=== PATIENT | male | born 1970 | race Caucasian/White ===

== ENCOUNTER 2021-09-11 08:11 | Outpatient (CLI) | payer OTHER, SELFPAY ==
[2021-09-11 11:21] LABS: Chloride* 103 mmol/L (96-114); Potassium* 4.2 mmol/L (3.6-5.1); Sodium* 138 mmol/L (135-149)
[2021-09-11 11:23] LABS: Cholesterol* 219 mg/dL (90-199); Creatinine* 0.9 mg/dL (0.5-1.5); Estimated Glomerular Filt Rate 105 ml/min
[2021-09-11 11:24] LABS: Blood Urea Nitrogen* 20 mg/dL (5-24); Calcium* 9.3 mg/dL (8.4-10.6); Carbon Dioxide* 27 mmol/L (20-32); Glucose* 123 mg/dL (60-115); Triglycerides* 125 mg/dL (40-149)
[2021-09-11 11:25] LABS: HDL Cholesterol* 58 mg/dL (>=40); LDL Cholesterol Calculated 136 mg/dL (<100)
== END 2021-09-11 08:12 | disposition home or self-care (01) ==
LOC: NFLDREF 08:12
PROVIDERS: PCP Family Medicine; Visit Provider Family Medicine
DX: Z00.00 Encounter for general adult medical examination without abnormal findings (principal); E87.1 Hypo-osmolality and hyponatremia; R73.09 Other abnormal glucose; E66.3 Overweight; R03.0 Elevated blood-pressure reading, without diagnosis of hypertension
CPT/HCPCS: 80048; 80061

== ENCOUNTER 2022-10-07 08:17 | Outpatient (CLI) | payer MEDICAID, SELFPAY | END 2022-10-07 08:18 | disposition home or self-care (01) | LOC: NFLDREF 11:20 | PROVIDERS: PCP Family Medicine; Referring Provider Family Medicine; Visit Provider Family Medicine | DX: Z13.6 Encounter for screening for cardiovascular disorders (principal) | CPT/HCPCS: 80061 ==

== ENCOUNTER 2024-08-03 08:52 | Outpatient (CLI) | payer MEDICAID, SELFPAY | END 2024-08-03 08:53 | disposition home or self-care (01) | PROVIDERS: PCP Family Medicine; Visit Provider Family Medicine | DX: E78.5 Hyperlipidemia, unspecified (principal); R68.82 Decreased libido; Z12.5 Encounter for screening for malignant neoplasm of prostate | CPT/HCPCS: 80053; 80061; 84403; G0103 ==

== ENCOUNTER 2024-08-19 07:21 | Outpatient (CLI) | payer MEDICAID, SELFPAY ==
--- NOTE | 2024-08-19 08:23 | P.ANES_ITS ---
Anesthesia Charges Start Date/Time Anesthesia Start Date: 08/19/24 Anesthesia Start Time: 07:58 Stop Date/Time Anesthesia Stop Date: 08/19/24 Anesthesia Stop Time: 08:21 Coding CPT Codes CPT Codes: ANES LWR INTST SCR COLSC - 45417 ([id number]) P2 - PATIENT W/MILD SYST DISEASE, QK - COMMAND POST SUPERINTENDENT 2-4 CNCRNT ANES PROC, QX - AERIAL HURRICANE HUNTER SVC W/ MD MED DIRECTION
--- NOTE | 2024-08-19 08:23 | W.ANESCHARGE ---
Anesthesia Charges Start Date/Time Anesthesia Start Date: 08/19/24 Anesthesia Start Time: 07:58 Stop Date/Time Anesthesia Stop Date: 08/19/24 Anesthesia Stop Time: 08:21 Coding CPT Codes CPT Codes: ANES LWR INTST SCR COLSC - 39219 ([id number]) P2 - PATIENT W/MILD SYST DISEASE, QK - CLINICAL RESEARCH MANAGER 2-4 CNCRNT ANES PROC, QX - CARRY OUT CLERK SVC W/ MD MED DIRECTION
--- NOTE | 2024-08-19 08:29 | P.ANES_ITS ---
Anesthesia Charges Start Date/Time Anesthesia Start Date: 08/19/24 Anesthesia Start Time: 07:58 Stop Date/Time Anesthesia Stop Date: 08/19/24 Anesthesia Stop Time: 08:21 Coding CPT Codes CPT Codes: ANES LWR INTST SCR COLSC - [id number] ([id number]) P2 - PATIENT W/MILD SYST DISEASE, QK - CELL ATTENDANT 2-4 CNCRNT ANES PROC, QX - COBOL MAINFRAME DEVELOPER SVC W/ MD MED DIRECTION
--- NOTE | 2024-08-19 08:29 | W.ANESCHARGE ---
Anesthesia Charges Start Date/Time Anesthesia Start Date: 08/19/24 Anesthesia Start Time: 07:58 Stop Date/Time Anesthesia Stop Date: 08/19/24 Anesthesia Stop Time: 08:21 Coding CPT Codes CPT Codes: ANES LWR INTST SCR COLSC - [id number] ([id number]) P2 - PATIENT W/MILD SYST DISEASE, QK - MICROFICHE CAMERA OPERATOR 2-4 CNCRNT ANES PROC, QX - INTERNET DESIGNER SVC W/ MD MED DIRECTION
== END 2024-08-19 07:22 | disposition home or self-care (01) ==
LOC: OP CLINIC 07:22
PROVIDERS: PCP Family Medicine; Visit Provider Internal Medicine
DX: Z12.11 Encounter for screening for malignant neoplasm of colon (principal); Z86.0100 Personal history of colon polyps, unspecified; K57.30 Diverticulosis of large intestine without perforation or abscess without bleeding
CPT/HCPCS: 00812; 45378; J2704

== ENCOUNTER 2024-08-23 07:28 | Outpatient (CLI) | payer MEDICAID, SELFPAY | END 2024-08-23 07:29 | disposition home or self-care (01) | LOC: NFLDREF 08-24 14:11 | PROVIDERS: PCP Family Medicine; Referring Provider Family Medicine; Visit Provider Family Medicine | DX: E78.5 Hyperlipidemia, unspecified (principal) | CPT/HCPCS: 80061 ==

== ENCOUNTER 2024-10-20 06:13 | Day surgery (SDC) | payer MEDICAID, SELFPAY ==
[2024-10-20] VITALS (13 sets, daily range): BP systolic 112–128; BP diastolic 67–86; PULSE 60–70; RESP 12–16; TEMP 36.3–36.8; O2SAT 95–96; BMI 31.3
[2024-10-20] MEDS: LACTATED RINGERS 1000 ML 1,000 ML 100 ML IV (07:05)
[2024-10-20] MEDS: SODIUM CHLORIDE 0.9 % (FLUSH) 10 ML SYRINGE IVF (07:05)
[2024-10-20] MEDS: BUPIVACAINE 0.25% 30 ML INJECTION (07:48)
--- NOTE | 2024-10-20 09:21 | W.PODPROC_ITS ---
Date of Procedure: 10/20/24 Surgeon: Obinna Sherman DPM Co-Surgeon: Dr. Fernanda Walsh DPM Pre-op Diagnosis: Right hallux rigidus/valgus Post-op Diagnosis: Right hallux rigidus/valgus Type of Procedure: 1. 1st Metatarsophalangeal arthrodesis, right 2. Bone marrow aspiration, right calcaneus Indications: Painful Right hallux rigidus/valgus recalcitrant to conservative cares Procedure Description: PROCEDURE: The patient was identified prior to being brought into the operating room using their name and date of as identifiers. The intended surgical care plan was again reviewed in detail with the patient as well as the rationale for the surgery, the most common risks, complications, and expected recovery course. The patient was given the opportunity to ask questions which were answered to the best of my ability. The patient ultimately voiced no questions or concerns and agreed to proceed forward with the surgery as planned. The patient was brought into the operating room and placed on the operating room table in the supine position. Anesthesia then performed LMA anesthesia. A well padded and appropriately sized ankle tourniquet was applied to their operative lower extremity. The operative lower extremity was then prepped and draped from toes to ankle in the usual aseptic fashion. The surgical prep was allowed to dry completely per electric track switch maintainer specifications. Antibiotic prophylaxis was infused i n the OR prior to start of the procedure. A TIME-OUT was performed and documented. Bone Marrow Aspiration, Right? A leone-block and calcaneal field block were performed to the operative foot using 0.25% Marcaine plain. The lateral aspect of the calcaneus was penetrated with a 15 gauge needle using standard technique and bone marrow along with chips of cancellous bone within the calcaneus was aspirated in 0.5-cc increments with redirection between each increment until an appropriate volume of bone marrow aspirate was obtained for use with the operative procedure performed. The integrity of the bone marrow aspira-tion/bone graft site was verified with stress palpation. The operative limb was exsanguinated with an Esmarch and the tourniquet was inflated to 250mmHg. 1st MPJ Arthrodesis, Right A linear incision 5-cm in length was made on the dorsal-medial aspect of the first metatarsal-phalangeal joint of the operative foot and the incision deep ened through the subcutaneous layers with care taken to identify, retract, and protect all vital structures and coagulate any bleeders as necessary. The incision was then deepened to the capsule and periosteum overlying the first metatarsal-phalangeal joint where a linear capsulotomy was performed to free the dorsal, medial, and lateral aspects of the first metatarsal head and base of the proximal phalanx. The first metatarsal head, base of the proximal phalanx, and sesamoids were visualized and the joint was deemed non-salvageable. Using a combination of hand-held and power instruments, the first metatarsal head and base of the proximal phalanx were resected in [id number] fashion followed by fenestration of the remaing subchondral bone plate to expose raw cancellous bone substrate throughout the operative site. The previously created bone graft mixture was packed in the osseous defects to promote healing. The base of the proximal phalanx was aligned according to the patients anatomic and functional needs paying attention to standard guidelines for optimum position and maintained in this position with provisional k-wire fixation. The forefoot was loaded and anatomic soft-tissue and osseous reduction was appreciated with good osseous apposition noted. A compression lag screw was placed over a guide wire in standard A.O. technique across the arthrodesis site with osseous apposition maintained. Intra-operative image intensification demonstrated proper alignment, stability, osseous apposition, and screw placement. An anatomical contoured arthrodesis plate was sized and placed over the dorsal aspect of the first metatarsal head and secured with multiple screws including the use of eccentric drilling for additional compression. Locking screws where employed as needed to provide a stable construct after care was taken to verify compression across the arthrodesis site. The original screw was re-tightened following insertion of the plate and screw construct. Intra-operative image intensification demonstrated proper alignment, stability, osseous apposition, and plate and screw placement. The surgical sites were copiously irrigated with sterile saline and hemostasis obtained with electrocautery. The deep tissues were approximated with absorbable suture and the skin edges approximated without tension using non-absorbable sutures. The pneumatic ankle tourniquet was then released and immediate reperfusion was noted to digits 1-5 of the operative foot. A bulky well-padded was then applied to the operative lower extremity from the base of the toes to ankle. All sponge and instrument counts were correct at the completion of the surgery as well as prior to closure of deep tissue and skin. Patient was successfully reversed from general anesthesia. Patient tolerated anesthesia and procedure well. Upon completion, patient was transferred from the operating room to the post- anesthesia care unit without incident. Upon arrival vital signs were stable and vascular status was intact to the operative lower extremity. Anesthesia: other (General LMA) Hemostasis: ankle (87 minutes) Estimated blood loss (mL): 5 Provider Operated C-arm: mini c-arm usage accumulated dose: 0.232mGy Implants: 3.0 headless compression screw Kodi 0 degree locking plate kodi 3.5 locking (x4) and non-locking (x1) plate screws kodi Specimens: none sent Disposition: PACU
--- NOTE | 2024-10-20 09:33 | P.ANES_ITS ---
Anesthesia Charges Start Date/Time Anesthesia Start Date: 10/20/24 Anesthesia Start Time: 07:28 Stop Date/Time Anesthesia Stop Date: 10/20/24 Anesthesia Stop Time: 09:34 Coding CPT Codes CPT Codes: ANESTH LOWER LEG BONE SURG - 70324 ([id number]) P2 - PATIENT W/MILD SYST DISEASE, QK - OXYACETYLENE CUTTER 2-4 CNCRNT ANES PROC, QX - SEXUAL HEALTH PHYSICIAN SVC W/ MD MED DIRECTION
--- NOTE | 2024-10-20 09:33 | W.ANESCHARGE ---
Anesthesia Charges Start Date/Time Anesthesia Start Date: 10/20/24 Anesthesia Start Time: 07:28 Stop Date/Time Anesthesia Stop Date: 10/20/24 Anesthesia Stop Time: 09:34 Coding CPT Codes CPT Codes: ANESTH LOWER LEG BONE SURG - 97226 ([id number]) P2 - PATIENT W/MILD SYST DISEASE, QK - CHEMICAL CHECKER 2-4 CNCRNT ANES PROC, QX - TRENCHER DRIVER SVC W/ MD MED DIRECTION
--- NOTE | 2024-10-20 10:48 | P.ANES_ITS ---
Anesthesia Charges Start Date/Time Anesthesia Start Date: 10/20/24 Anesthesia Start Time: 07:28 Stop Date/Time Anesthesia Stop Date: 10/20/24 Anesthesia Stop Time: 09:34 Coding CPT Codes CPT Codes: ANESTH LOWER LEG BONE SURG - 70121 ([id number]) P2 - PATIENT W/MILD SYST DISEASE, QK - FORMAL WAITER/WAITRESS 2-4 CNCRNT ANES PROC, QX - PROFESSOR OF POLITICAL SCIENCE SVC W/ MD MED DIRECTION
--- NOTE | 2024-10-20 10:48 | W.ANESCHARGE ---
Anesthesia Charges Start Date/Time Anesthesia Start Date: 10/20/24 Anesthesia Start Time: 07:28 Stop Date/Time Anesthesia Stop Date: 10/20/24 Anesthesia Stop Time: 09:34 Coding CPT Codes CPT Codes: ANESTH LOWER LEG BONE SURG - 54407 ([id number]) P2 - PATIENT W/MILD SYST DISEASE, QK - INSPECTOR METAL FABRICATING 2-4 CNCRNT ANES PROC, QX - FOREMAN/PROJECT MANAGER SVC W/ MD MED DIRECTION
[2024-10-20] MEDS: HYDROCODONE-ACETAMIN 5-325 MG 1 TAB PO (11:00)
== END 2024-10-20 12:06 | disposition home or self-care (01) ==
PROVIDERS: PCP Family Medicine; Visit Provider Podiatrist
PROC: (CPT 28740; principal; 2024-10-20 07:30)
DX: M20.21 Hallux rigidus, right foot (principal); M20.11 Hallux valgus (acquired), right foot
CPT/HCPCS: 28750; 20999; 01480; 73630; 76000; A9270; C1713; J0665; J0690; J1100; J2405; J2704; J3010; J7120